=== PATIENT | female | born 1950 | race African-American/Black ===

== ENCOUNTER 2016-10-09 19:16 | Inpatient (IN) | payer MEDICARE, MEDICAID ==
[~2016-10-09] VITALS: Ht 162.6 cm; Wt 59.0 kg
[~2016-10-09 19:16] MED LIST: ACET-2178 PO; DIPH25CA83 PO; DOCU-138 PO; KEPP500 PO
[2016-10-10] MEDS ORDERED: MORPHINE SULFATE 2 MG/ML CPJ (NOT FOR IM USE) IV ONE (00:45)
[2016-10-10] MEDS ORDERED: SODIUM CHLORIDE 0.9% 500 ML IV ONE (00:45)
[2016-10-10 00:56] LABS: BASOPHILS % 0.9 % (0.0-2.0); EOSINOPHILS % 5.3 % (0.0-5.0); HEMATOCRIT. 28.7 % (36.0-48.0); HEMOGLOBIN. 9.2 g/dL (12.0-16.0); LYMPHOCYTES % 18.6 % (20.0-50.0); MEAN CORPUSCULAR HEMOGLOBIN 26.1 pg (28.0-32.0); MEAN CORPUSCULAR HGB CONC 32.1 g/dL (31.0-37.0); MEAN CORPUSCULAR VOLUME 81.3 fL (81.0-99.0); MEAN PLATELET VOLUME 7.3 fl (7.4-10.4); MONOCYTES % 7.7 % (2.0-8.0); NEUTROPHILS % 67.5 % (40.0-76.0); PLATELET 440 x1000/uL (130-400); RED BLOOD CELL COUNT 3.53 mill/uL (4.2-5.4); RED CELL DISTRIBUTION WIDTH 22.5 % (11.6-14.6); WHITE BLOOD COUNT 9.4 x1000/uL (4.5-11.0)
[2016-10-10 00:59] LABS: DIFFERENTIAL COMMENT 1
[2016-10-10 01:05] LABS: CHLORIDE 105 mEq/L (98-107); INDEX HEMOLYSI 1 (1-3); INDEX ICTERIC 1 (1-4); INDEX LIPEMIC 1 (1-3)
[2016-10-10 01:13] LABS: ALANINE AMINOTRANSFERASE 10 IU/L (13-61); ANION GAP 12; CALCIUM 8.9 mg/dL (8.5-10.1); CARBON DIOXIDE 26 mEq/L (21-32); UREA NITROGEN BLOOD 12 mg/dL (7-21); eGFR > 60 mL/min (>60)
[2016-10-10 01:28] LABS: CLARITY URINE CLEAR (CLEAR); COLOR URINE YELLOW (YELLOW); GLUCOSE URINE NEGATIVE (NEGATIVE); KETONES URINE NEGATIVE (NEGATIVE); LEUKOCYTE ESTERASE URINE 1+ (NEGATIVE); NITRITE URINE NEGATIVE (NEGATIVE); OCCULT BLOOD URINE NEGATIVE (NEGATIVE); PH URINE 7.5 (4.5-8.0); PROTEIN URINE NEGATIVE (NEGATIVE); SPECIFIC GRAVITY URINE 1.016 (1.005-1.030); UROBILINOGEN URINE 0.2 E.U./dL (0.2-1.0)
[2016-10-10 01:35] LABS: *AMPHETAMINES SCREEN URINE NEGATIVE (NEGATIVE); *BARBITURATES SCREEN URINE NEGATIVE (NEGATIVE); *BENZODIAZEPINES SCREEN URINE NEGATIVE (NEGATIVE); *COCAINE SCREEN URINE NEGATIVE (NEGATIVE); CANNABINOID URINE SCREEN NEGATIVE (NEGATIVE); ECSTASY MDMA SCREEN URINE NEGATIVE (NEGATIVE); METHADONE URINE SCREEN NEGATIVE (NEGATIVE); OPIATES URINE SCREEN PRESUMTIVE POSITIVE (NEGATIVE); PHENCYCLIDINE URINE SCREEN NEGATIVE (NEGATIVE)
[2016-10-10 01:40] LABS: SQUAMOUS EPITHELIAL CELL URINE FEW /lpf (RARE/1+); WBC URINE 0-2 /hpf (0-2)
[2016-10-10 01:41] LABS: RBC URINE NONE SEEN /hpf (0-2)
[2016-10-10 01:42] LABS: BACTERIA URINE NONE SEEN
[2016-10-10] MEDS ORDERED: CLONIDINE 0.1MG TABLET PO PRN (03:45)
[2016-10-10] MEDS: MORPHINE SULFATE 2 MG/ML CPJ (NOT FOR IM USE) IV PRN ×5 (03:51→21:14)
[2016-10-10 08:00] VITALS: BP 122/80
[2016-10-10] MEDS ORDERED: POTASSIUM CHLORIDE 20MEQ TABLET SR PO NR (08:15)
[2016-10-10 08:29] VITALS: BP 122/80
[2016-10-10] MEDS: NIFEDIPINE XL 60MG TAB PO SCH (08:39)
[2016-10-10] MEDS: SODIUM CHLORIDE 0.9% 1,000 ML IV SCH (09:17)
[2016-10-10 12:00] VITALS: BP 131/91
[2016-10-10] MEDS: ENOXAPARIN 40MG/0.4ML SYR SUBCUT SCH (14:16)
[2016-10-10 14:49] LABS: CREATINE KINASE 28 IU/L (26-192); CREATINE KINASE MB FRACTION 1.3 ng/mL (0.5-3.6); INDEX HEMOLYSI 1 (1-3); MAGNESIUM 1.8 mg/dL (1.8-2.4); TROPONIN I < 0.02 ng/mL (0.00-0.04)
[2016-10-10 16:00] VITALS: BP 114/75
[2016-10-10 20:29] VITALS: BP 119/76
[2016-10-11] VITALS: BP 136/91
[2016-10-11] MEDS: MORPHINE SULFATE 2 MG/ML CPJ (NOT FOR IM USE) IV PRN ×5 (02:01→20:31)
[2016-10-11] MEDS: SODIUM CHLORIDE 0.9% 1,000 ML IV SCH ×2 (02:01→17:20)
[2016-10-11 04:00] VITALS: BP 128/82
[2016-10-11 06:45] LABS: BASOPHILS % 1.2 % (0.0-2.0); EOSINOPHILS % 5.5 % (0.0-5.0); HEMATOCRIT. 29.2 % (36.0-48.0); HEMOGLOBIN. 9.3 g/dL (12.0-16.0); LYMPHOCYTES % 28.1 % (20.0-50.0); MEAN CORPUSCULAR HEMOGLOBIN 25.5 pg (28.0-32.0); MEAN CORPUSCULAR VOLUME 79.8 fL (81.0-99.0); MEAN PLATELET VOLUME 7.7 fl (7.4-10.4); MONOCYTES % 5.5 % (2.0-8.0); NEUTROPHILS % 59.7 % (40.0-76.0); PLATELET 445 x1000/uL (130-400); RED BLOOD CELL COUNT 3.66 mill/uL (4.2-5.4); RED CELL DISTRIBUTION WIDTH 22.5 % (11.6-14.6); WHITE BLOOD COUNT 5.5 x1000/uL (4.5-11.0)
[2016-10-11 07:17] LABS: CHLORIDE 103 mEq/L (98-107); INDEX HEMOLYSI 1 (1-3); INDEX ICTERIC 1 (1-4); INDEX LIPEMIC 1 (1-3)
[2016-10-11 07:23] LABS: DIFFERENTIAL COMMENT 1
[2016-10-11 07:24] LABS: ADD RBC MORPHOLOGY YES
[2016-10-11 07:30] LABS: ALANINE AMINOTRANSFERASE 11 IU/L (13-61); ANION GAP 14; CALCIUM 8.9 mg/dL (8.5-10.1); CARBON DIOXIDE 24 mEq/L (21-32); UREA NITROGEN BLOOD 7 mg/dL (7-21); eGFR > 60 mL/min (>60)
[2016-10-11 08:00] VITALS: BP 100/67
[2016-10-11 08:13] LABS: ANISOCYTOSIS 3+; PLATELET ESTIMATE INCREASED
[2016-10-11] MEDS: ENOXAPARIN 40MG/0.4ML SYR SUBCUT SCH (08:31)
[2016-10-11] MEDS: NIFEDIPINE XL 60MG TAB PO SCH (08:32)
[2016-10-11] MEDS ORDERED: POTASSIUM CHLORIDE 40MEQ/30ML UDC PO ONE (09:45)
[2016-10-11] MEDS ORDERED: POTASSIUM CHLORIDE 20MEQ TABLET SR PO NR (10:00)
[2016-10-11] MEDS: CEFTRIAXONE 1 G PREMIX 50 ML IV SCH (11:01)
[2016-10-11 12:00] VITALS: BP 128/80
[2016-10-11 13:10] LABS: INDEX HEMOLYSI 1 (1-3); INDEX ICTERIC 1 (1-4); INDEX LIPEMIC 1 (1-3); IRON 23 ug/dL (50-175); TOTAL IRON BINDING CAPACITY 300 ug/dL (250-450)
[2016-10-11 16:00] VITALS: BP 129/79
[2016-10-12] MEDS: LEVETIRACETAM 500MG TABLET PO SCH ×2 (02:02→08:33)
[2016-10-12] MEDS: MORPHINE SULFATE 2 MG/ML CPJ (NOT FOR IM USE) IV PRN ×3 (02:04→13:15)
[2016-10-12 08:00] VITALS: BP 112/80
[2016-10-12] MEDS: ENOXAPARIN 40MG/0.4ML SYR SUBCUT SCH (08:34)
[2016-10-12] MEDS: NIFEDIPINE XL 60MG TAB PO SCH (08:34)
[2016-10-12] MEDS: CEFTRIAXONE 1 G PREMIX 50 ML IV SCH (10:12)
[2016-10-12] MEDS: SODIUM CHLORIDE 0.9% 1,000 ML IV SCH (11:01)
[2016-10-12 12:00] VITALS: BP 111/77
[2016-10-12 15:54] VITALS: BP 121/86
[2016-10-12 16:00] VITALS: BP 121/86
== END 2016-10-12 16:20 | disposition home or self-care (01) | DRG 690 ==
LOC: ER 19:42 → 6EST 10-10 02:14
PROVIDERS: ADMIT Internal Medicine; ATTEND Internal Medicine
DX: N39.0 Urinary tract infection, site not specified (principal); I31.3 Pericardial effusion (noninflammatory); K57.30 Diverticulosis of large intestine without perforation or abscess without bleeding; E87.6 Hypokalemia; N20.0 Calculus of kidney; F20.9 Schizophrenia, unspecified; F31.9 Bipolar disorder, unspecified
CPT/HCPCS: 36415; 71010; 74176; 78227; 80053; 80305; 81001; 82550; 82553; 83036; 83540; 83550; 83605; 83735; 84484; 85025; 87040; 87086; 93005; 93970; 96361; 96374; 96376; 99285; A9537; J0696; J1650; J2270; J7030; J7040

== ENCOUNTER 2018-06-07 10:56 | Inpatient (IN) | payer MEDICARE, MEDICAID ==
[~2018-06-07] VITALS: Ht 157.5 cm; Wt 55.8 kg
[~2018-06-07 10:56] MED LIST changes: +DIVA-18 PO; -KEPP500 PO
[2018-06-07 12:07] LABS: MEAN CORPUSCULAR HEMOGLOBIN 15.2 pg (28.0-32.0); MEAN CORPUSCULAR VOLUME 54.6 fL (81.0-99.0); MEAN PLATELET VOLUME 8.5 fl (7.4-10.4); PLATELET 412 x1000/uL (130-400); RED BLOOD CELL COUNT 2.58 mill/uL (4.2-5.4)
[2018-06-07 12:13] LABS: CHLORIDE 111 mEq/L (98-107)
[2018-06-07 12:25] LABS: HEMOGLOBIN. 3.9 g/dL (12.0-16.0)
[2018-06-07 12:26] LABS: HEMATOCRIT. 14.1 % (36.0-48.0)
[2018-06-07 12:49] LABS: NUCLEATED RED BLOOD CELLS 4 /100 WBC
[2018-06-07 12:51] LABS: INR 1.1; PROTHROMBIN TIME 10.7 sec (9.1-11.1)
[2018-06-07 12:51] LABS: PLATELET ESTIMATE SLIGHTLY INCREASED
[2018-06-07] MEDS ORDERED: ONDANSETRON HCL 4MG/2ML INJ IV PRN (15:00)
[2018-06-07] MEDS ORDERED: CLONIDINE 0.1MG TABLET PO PRN (15:00)
[2018-06-07] MEDS ORDERED: PANTOPRAZOLE SODIUM 40 MG/VIAL IV SCH (15:00)
[2018-06-07] MEDS: MORPHINE SULFATE 4 MG/ML CPJ (NOT FOR IM USE) IV PRN ×2 (16:04→20:21)
[2018-06-07 16:47] LABS: TOTAL IRON BINDING CAPACITY 418 ug/dL (250-450)
[2018-06-07 17:31] LABS: FERRITIN < 5 ng/mL (10-291)
[2018-06-07 17:47] LABS: VITAMIN B12 SERUM 449 pg/mL (211-911)
[2018-06-07 20:45] VITALS: BP 159/90
[2018-06-07] MEDS: PANTOPRAZOLE SODIUM 40 MG/VIAL IV SCH (21:51)
[2018-06-07 22:14] VITALS: BP 159/90
[2018-06-07 22:17] LABS: HEMATOCRIT 20.1 % (36.0-48.0); HEMOGLOBIN 6.3 g/dL (12.0-16.0)
[2018-06-07] MEDS ORDERED: INFLUENZA VIRUS VACCINE(AFLURIA) 0.5ML SYR IM ONE (23:45)
[2018-06-08] VITALS (10 sets, daily range): BP systolic 104–160; BP diastolic 62–80
[2018-06-08] MEDS ORDERED: PNEUMOCOCCAL 23-VAL P-SAC VAC 0.5 ML IM ONE (01:00)
[2018-06-08 01:35] LABS: CLARITY URINE CLOUDY (CLEAR); COLOR URINE YELLOW (YELLOW); KETONES URINE NEGATIVE (NEGATIVE); LEUKOCYTE ESTERASE URINE 1+ (NEGATIVE); NITRITE URINE NEGATIVE (NEGATIVE); OCCULT BLOOD URINE NEGATIVE (NEGATIVE); PH URINE 6.5 (4.5-8.0); PROTEIN URINE NEGATIVE (NEGATIVE); SPECIFIC GRAVITY URINE 1.011 (1.005-1.030); UROBILINOGEN URINE 0.2 E.U./dL (0.2-1.0)
[2018-06-08] MEDS: MORPHINE SULFATE 4 MG/ML CPJ (NOT FOR IM USE) IV PRN ×3 (01:45→10:28)
[2018-06-08 01:49] LABS: *AMPHETAMINES SCREEN URINE NEGATIVE (NEGATIVE); *BARBITURATES SCREEN URINE NEGATIVE (NEGATIVE); *BENZODIAZEPINES SCREEN URINE NEGATIVE (NEGATIVE); *COCAINE SCREEN URINE NEGATIVE (NEGATIVE)
[2018-06-08 01:50] LABS: CANNABINOID URINE SCREEN NEGATIVE (NEGATIVE); METHADONE URINE SCREEN NEGATIVE (NEGATIVE); OPIATES URINE SCREEN PRESUMTIVE POSITIVE (NEGATIVE); PHENCYCLIDINE URINE SCREEN NEGATIVE (NEGATIVE)
[2018-06-08 07:39] LABS: MEAN CORPUSCULAR HEMOGLOBIN 20.4 pg (28.0-32.0); MEAN CORPUSCULAR VOLUME 64.8 fL (81.0-99.0); MEAN PLATELET VOLUME 8.3 fl (7.4-10.4); PLATELET 322 x1000/uL (130-400); RED BLOOD CELL COUNT 2.91 mill/uL (4.2-5.4); RED CELL DISTRIBUTION WIDTH 35.1 % (11.6-14.6)
[2018-06-08 07:40] LABS: INR 1.1; PARTIAL THROMBOPLASTIN TIME 27.6 sec (23.4-31.0); PROTHROMBIN TIME 10.7 sec (9.1-11.1)
[2018-06-08 07:51] LABS: CHLORIDE 109 mEq/L (98-107)
[2018-06-08 08:29] LABS: HEMOGLOBIN. 5.9 g/dL (12.0-16.0)
[2018-06-08 08:30] LABS: HEMATOCRIT. 18.8 % (36.0-48.0)
[2018-06-08] MEDS: HYDROCODONE/ACETAMINOPHEN 5/325MG TABLET PO PRN (09:08)
[2018-06-08] MEDS: PANTOPRAZOLE SODIUM 40 MG/VIAL IV SCH ×2 (10:28→20:27)
[2018-06-08] MEDS ORDERED: BACTERIOSTATIC SODIUM CHLORIDE 0.9% 30ML VIAL IJ ONE (11:42)
[2018-06-08] MEDS ORDERED: SIMETHICONE 40 MG/0.6 ML 30ML ONE ×2 (11:42→16:12)
[2018-06-08 13:18] LABS: PLATELET ESTIMATE NORMAL
[2018-06-08] MEDS ORDERED: FENTANYL CITRATE/PF 50MCG/ML 2ML VIAL ONE (16:12)
[2018-06-08] MEDS ORDERED: MIDAZOLAM HCL 5 MG/5 ML VIAL ONE (16:12)
[2018-06-08] MEDS ORDERED: MIDAZOLAM HCL 5 MG/5 ML VIAL IV PRN (16:25)
[2018-06-08] MEDS ORDERED: FENTANYL CITRATE/PF 50MCG/ML 2ML VIAL IV PRN (16:26)
[2018-06-08 19:39] LABS: HEMATOCRIT 22.2 % (36.0-48.0); HEMOGLOBIN 7.2 g/dL (12.0-16.0)
[2018-06-09] VITALS: BP 101/58
[2018-06-09 04:00] VITALS: BP 116/66
[2018-06-09 07:03] LABS: HEMATOCRIT. 22.3 % (36.0-48.0); HEMOGLOBIN. 7.3 g/dL (12.0-16.0); MEAN CORPUSCULAR HEMOGLOBIN 21.9 pg (28.0-32.0); MEAN CORPUSCULAR VOLUME 66.8 fL (81.0-99.0); MEAN PLATELET VOLUME 8.7 fl (7.4-10.4); PLATELET 351 x1000/uL (130-400); RED BLOOD CELL COUNT 3.34 mill/uL (4.2-5.4); RED CELL DISTRIBUTION WIDTH 35.6 % (11.6-14.6)
[2018-06-09 07:21] LABS: CHLORIDE 107 mEq/L (98-107)
[2018-06-09 08:00] VITALS: BP 127/71
[2018-06-09] MEDS: PANTOPRAZOLE 40MG DR TABLET PO SCH (10:21)
[2018-06-09] MEDS: SUCRALFATE 1 G/10 ML UDC PO SCH ×3 (10:53→21:08)
[2018-06-09] MEDS: HYDROCODONE/ACETAMINOPHEN 5/325MG TABLET PO PRN (10:59)
[2018-06-09] MEDS: CEFTRIAXONE 1 G PREMIX 50 ML IV SCH (11:58)
[2018-06-09 12:00] VITALS: BP 136/79
[2018-06-09] MEDS ORDERED: POTASSIUM CHLORIDE 20MEQ TABLET SR PO SCH (12:30)
[2018-06-09 13:09] VITALS: BP 136/79
[2018-06-09 16:20] VITALS: BP 111/68
[2018-06-10] VITALS: BP 130/75
[2018-06-10 04:00] VITALS: BP 122/73
[2018-06-10] MEDS: SUCRALFATE 1 G/10 ML UDC PO SCH ×2 (06:06→11:38)
[2018-06-10] MEDS: HYDROCODONE/ACETAMINOPHEN 5/325MG TABLET PO PRN (06:07)
[2018-06-10 07:15] LABS: HEMATOCRIT. 25.5 % (36.0-48.0); HEMOGLOBIN. 8.1 g/dL (12.0-16.0); MEAN CORPUSCULAR HEMOGLOBIN 21.8 pg (28.0-32.0); MEAN CORPUSCULAR VOLUME 69.1 fL (81.0-99.0); MEAN PLATELET VOLUME 8.6 fl (7.4-10.4); PLATELET 365 x1000/uL (130-400); RED BLOOD CELL COUNT 3.69 mill/uL (4.2-5.4); RED CELL DISTRIBUTION WIDTH 35.7 % (11.6-14.6)
[2018-06-10 08:00] VITALS: BP 131/73
[2018-06-10 08:08] LABS: NUCLEATED RED BLOOD CELLS 1 /100 WBC; PLATELET ESTIMATE NORMAL
[2018-06-10] MEDS: PANTOPRAZOLE 40MG DR TABLET PO SCH (08:57)
[2018-06-10] MEDS ORDERED: IRON SUCROSE COMPLEX 100 MG/5 ML ML IV SCH (09:30)
[2018-06-10 09:42] LABS: PLATELET ESTIMATE NORMAL
[2018-06-10] MEDS: CEFTRIAXONE 1 G PREMIX 50 ML IV SCH (11:38)
[2018-06-10 12:00] VITALS: BP_SYST 130; BP_SYST 147; BP_DIAS 67; BP_DIAS 84
[2018-06-10 12:12] VITALS: BP 130/68
== END 2018-06-10 13:15 | disposition home or self-care (01) | DRG 378 ==
LOC: ER 10:56 → 5WST 14:14 → EDBEDREQ 14:15 → ENRESERV 19:23
PROVIDERS: ADMIT Internal Medicine; ATTEND Internal Medicine
PROC: 30233N1 Transfusion of Nonautologous Red Blood Cells into Peripheral Vein, Percutaneous Approach (ICD-10-PCS; 2018-06-07)
PROC: 0DB78ZX Excision of Stomach, Pylorus, Via Natural or Artificial Opening Endoscopic, Diagnostic (ICD-10-PCS; principal; 2018-06-08 17:30)
DX: K26.4 Chronic or unspecified duodenal ulcer with hemorrhage (principal); E87.0 Hyperosmolality and hypernatremia; K22.10 Ulcer of esophagus without bleeding; D50.9 Iron deficiency anemia, unspecified; J45.909 Unspecified asthma, uncomplicated; F31.9 Bipolar disorder, unspecified; I10 Essential (primary) hypertension; K29.50 Unspecified chronic gastritis without bleeding; K44.9 Diaphragmatic hernia without obstruction or gangrene; E87.8 Other disorders of electrolyte and fluid balance, not elsewhere classified; K57.30 Diverticulosis of large intestine without perforation or abscess without bleeding; Z87.11 Personal history of peptic ulcer disease; Z79.899 Other long term (current) drug therapy
CPT/HCPCS: 36415; 80048; 80305; 82607; 82728; 82746; 83540; 83550; 85014; 85018; 86850; 86900; 86920; 87077; 87186; 88305; 88312; 88313; 93005; 99291; C9113; J0696; J2250; J2270; J3010; J3490; J7050; P9016

== ENCOUNTER 2019-01-14 02:25 | Emergency (ER) | payer MEDICARE, MEDICAID ==
[~2019-01-14] VITALS: Ht 160 cm; Wt 69.0 kg
[2019-01-14] MEDS ORDERED: PREDNISONE 20MG TABLET PO STA (04:02)
[2019-01-14] MEDS ORDERED: IPRATROPIUM BROMIDE (0.02%) 0.5MG/2.5ML NEB HHN STA ×2 (04:02→04:59)
[2019-01-14] MEDS ORDERED: ALBUTEROL (0.083%) 2.5MG/3ML NEB HHN STA ×2 (04:02→04:59)
[2019-01-14 04:28] LABS: HEMATOCRIT. 28.6 % (36.0-48.0); HEMOGLOBIN. 9.1 g/dL (12.0-16.0); MEAN CORPUSCULAR HEMOGLOBIN 25.6 pg (28.0-32.0); MEAN CORPUSCULAR VOLUME 80.1 fL (81.0-99.0); MEAN PLATELET VOLUME 7.7 fl (7.4-10.4); PLATELET 405 x1000/uL (130-400); RED BLOOD CELL COUNT 3.57 mill/uL (4.2-5.4); RED CELL DISTRIBUTION WIDTH 20.1 % (11.6-14.6)
[2019-01-14 04:33] LABS: CHLORIDE 109 mEq/L (98-107)
[2019-01-14 05:07] LABS: PLATELET ESTIMATE NORMAL
[2019-01-14] MEDS ORDERED: PERMETHRIN 5% CREAM 60GM TOP ONE (22:15)
[2019-01-15 07:13] VITALS: BP 132/79
== END 2019-01-15 14:23 | disposition home or self-care (01) ==
LOC: ER 02:25
DX: J45.901 Unspecified asthma with (acute) exacerbation (principal); Z90.49 Acquired absence of other specified parts of digestive tract; Z79.899 Other long term (current) drug therapy
CPT/HCPCS: 36415; 71045; 80053; 83880; 84484; 85025; 93005; 94640; 99284; J7512; J7611

== ENCOUNTER 2019-04-12 03:20 | Inpatient (IN) | payer OTHER, MEDICAID ==
[~2019-04-12] VITALS: Ht 160 cm; Wt 56.7 kg
[2019-04-12] MEDS ORDERED: METHYLPREDNISOLONE SOD SUCC 125 MG/2 ML VIAL IV STA (03:56)
[2019-04-12] MEDS ORDERED: ONDANSETRON HCL 4MG/2ML INJ IV STA (03:56)
[2019-04-12] MEDS ORDERED: IPRATROPIUM BROMIDE (0.02%) 0.5MG/2.5ML NEB HHN STA (03:56)
[2019-04-12] MEDS ORDERED: ALBUTEROL (0.083%) 2.5MG/3ML NEB HHN STA (03:56)
[2019-04-12 04:19] LABS: HEMOGLOBIN. 10.3 g/dL (12.0-16.0); MEAN CORPUSCULAR HEMOGLOBIN 23.6 pg (28.0-32.0); MEAN CORPUSCULAR VOLUME 76.1 fL (81.0-99.0); MEAN PLATELET VOLUME 7.6 fl (7.4-10.4); PLATELET 405 x1000/uL (130-400); RED BLOOD CELL COUNT 4.34 mill/uL (4.2-5.4)
[2019-04-12 04:27] LABS: CHLORIDE 101 mEq/L (98-107)
[2019-04-12 04:40] LABS: NUCLEATED RED BLOOD CELLS 1 /100 WBC; PLATELET ESTIMATE SLIGHTLY INCREASED
[2019-04-12 08:20] VITALS: BP 105/69
[2019-04-12 09:12] VITALS: BP 105/69
[2019-04-12] MEDS ORDERED: DIPHENHYDRAMINE 50MG/ML VIAL IV PRN (10:15)
[2019-04-12] MEDS ORDERED: GUAIFENESIN 200MG/10ML SUGAR FREE UDC PO PRN (10:15)
[2019-04-12] MEDS ORDERED: ONDANSETRON HCL 4MG/2ML INJ IV PRN (10:15)
[2019-04-12] MEDS ORDERED: MAGNESIUM/ALUMINUM HYDROXIDE/SIMETHICONE 30ML UDC PO PRN (10:15)
[2019-04-12] MEDS ORDERED: IPRATROPIUM/ALBUTEROL 0.5-3(2.5)MG/3ML NEB HHN PRN (10:15)
[2019-04-12] MEDS ORDERED: LORAZEPAM 0.5MG TABLET PO PRN (10:15)
[2019-04-12] MEDS ORDERED: MAGNESIUM HYDROXIDE 400MG/5ML 30ML UDC PO PRN (10:15)
[2019-04-12 12:00] VITALS: BP 103/60
[2019-04-12] MEDS: IPRATROPIUM/ALBUTEROL 0.5-3(2.5)MG/3ML NEB HHN SCH ×3 (12:20→20:57)
[2019-04-12] MEDS: METHYLPREDNISOLONE SOD SUCC 125 MG/2 ML VIAL IV SCH ×2 (12:52→23:14)
[2019-04-12] MEDS: PANTOPRAZOLE 40MG DR TABLET PO SCH ×2 (12:58→23:14)
[2019-04-12] MEDS: SODIUM CHLORIDE 0.9% INJ 3ML FLUSH IVF SCH ×2 (12:58→22:00)
[2019-04-12] MEDS ORDERED: INFLUENZA VIRUS VACCINE(AFLURIA) 0.5ML SYR IM ONE (13:30)
[2019-04-12 16:00] VITALS: BP 110/65
[2019-04-12 20:00] VITALS: BP 99/59
[2019-04-12] MEDS ORDERED: ZOLPIDEM TARTRATE 5MG TABLET PO PRN (21:00)
[2019-04-13] VITALS: BP 97/51
[2019-04-13] MEDS: IPRATROPIUM/ALBUTEROL 0.5-3(2.5)MG/3ML NEB HHN SCH ×6 (01:08→20:00)
[2019-04-13] MEDS: ACETAMINOPHEN 325MG TABLET PO PRN ×4 (04:23→21:09)
[2019-04-13] MEDS: METHYLPREDNISOLONE SOD SUCC 125 MG/2 ML VIAL IV SCH ×3 (06:15→21:10)
[2019-04-13] MEDS: SODIUM CHLORIDE 0.9% INJ 3ML FLUSH IVF SCH ×3 (06:16→21:11)
[2019-04-13 08:00] VITALS: BP 107/59
[2019-04-13] MEDS: PANTOPRAZOLE 40MG DR TABLET PO SCH ×2 (08:59→21:10)
[2019-04-13 12:00] VITALS: BP 112/68
[2019-04-13] MEDS ORDERED: BENZONATATE 100MG CAPSULE PO PRN (15:30)
[2019-04-13 16:00] VITALS: BP 118/96
[2019-04-13] MEDS: LORATADINE 10MG TABLET PO SCH (16:11)
[2019-04-13] MEDS ORDERED: MONTELUKAST SODIUM 10MG TABLET PO SCH (17:00)
[2019-04-13 20:00] VITALS: BP 115/65
[2019-04-14] VITALS: BP 114/60
[2019-04-14] MEDS: IPRATROPIUM/ALBUTEROL 0.5-3(2.5)MG/3ML NEB HHN SCH ×4 (03:02→13:03)
[2019-04-14 04:00] VITALS: BP 125/78
[2019-04-14] MEDS: SODIUM CHLORIDE 0.9% INJ 3ML FLUSH IVF SCH (05:19)
[2019-04-14] MEDS: METHYLPREDNISOLONE SOD SUCC 125 MG/2 ML VIAL IV SCH (05:19)
[2019-04-14] MEDS: ACETAMINOPHEN 325MG TABLET PO PRN (05:19)
[2019-04-14 08:00] VITALS: BP 140/77
[2019-04-14] MEDS: PANTOPRAZOLE 40MG DR TABLET PO SCH (09:23)
[2019-04-14] MEDS: LORATADINE 10MG TABLET PO SCH (09:23)
[2019-04-14 12:00] VITALS: BP 110/69
[2019-04-14 13:14] VITALS: BP 136/69
== END 2019-04-14 13:59 | disposition home or self-care (01) | DRG 189 ==
LOC: ER 03:20 → 8WST 05:43 → EDBEDREQTM 05:59 → EDBEDREQ 05:59 → ENRESERV 07:08
PROVIDERS: ADMIT Internal Medicine; ATTEND Internal Medicine
DX: J96.00 Acute respiratory failure, unspecified whether with hypoxia or hypercapnia (principal); J45.901 Unspecified asthma with (acute) exacerbation; J44.1 Chronic obstructive pulmonary disease with (acute) exacerbation; R65.10 Systemic inflammatory response syndrome (SIRS) of non-infectious origin without acute organ dysfunction; D64.9 Anemia, unspecified; F31.9 Bipolar disorder, unspecified; I11.9 Hypertensive heart disease without heart failure; D72.1 Eosinophilia; Z72.0 Tobacco use; Z87.11 Personal history of peptic ulcer disease; Z79.899 Other long term (current) drug therapy
CPT/HCPCS: 36415; 71045; 83605; 83880; 84484; 90686; 93005; 93306; 93970; 94640; 99285; J1200; J2405; J2930; J7611; J7620

== ENCOUNTER 2019-05-15 16:41 | Inpatient (IN) | payer OTHER, MEDICAID ==
[~2019-05-15] VITALS: Ht 160 cm; Wt 60.3 kg
[~2019-05-15 16:41] MED LIST changes: -ACET-2178 PO; +TOPUD PO
[2019-05-15] MEDS ORDERED: ONDANSETRON HCL 4MG/2ML INJ IV STA ×2 (20:52→20:58)
[2019-05-15] MEDS ORDERED: KETOROLAC 30MG/ML VIAL IV STA (20:52)
[2019-05-15] MEDS ORDERED: SODIUM CHLORIDE 0.9% 1,000 ML IV ONE ×2 (20:52→20:58)
[2019-05-15] MEDS ORDERED: MORPHINE SULFATE 4 MG/ML CPJ (NOT FOR IM USE) IV STA (20:58)
[2019-05-15 23:58] LABS: CLARITY URINE CLOUDY (CLEAR); COLOR URINE YELLOW (YELLOW); KETONES URINE NEGATIVE (NEGATIVE); LEUKOCYTE ESTERASE URINE 1+ (NEGATIVE); NITRITE URINE NEGATIVE (NEGATIVE); OCCULT BLOOD URINE NEGATIVE (NEGATIVE); PH URINE 7.5 (4.5-8.0); PROTEIN URINE NEGATIVE (NEGATIVE); SPECIFIC GRAVITY URINE 1.011 (1.005-1.030); UROBILINOGEN URINE 0.2 E.U./dL (0.2-1.0)
[2019-05-16] VITALS (11 sets, daily range): BP systolic 100–144; BP diastolic 65–90
[2019-05-16 00:28] LABS: CHLORIDE 105 mEq/L (98-107)
[2019-05-16 00:31] LABS: PROTHROMBIN TIME 10.7 sec (9.6-11.0)
[2019-05-16 00:32] LABS: ETHANOL BLOOD < 10 mg/dL
[2019-05-16 00:37] LABS: HEMATOCRIT. 23.6 % (36.0-48.0); MEAN CORPUSCULAR HEMOGLOBIN 21.7 pg (28.0-32.0); MEAN CORPUSCULAR VOLUME 73.6 fL (81.0-99.0); PLATELET 361 x1000/uL (130-400); RED BLOOD CELL COUNT 3.21 mill/uL (4.2-5.4); RED CELL DISTRIBUTION WIDTH 27.8 % (11.6-14.6)
[2019-05-16 01:17] LABS: PLATELET ESTIMATE NORMAL
[2019-05-16] MEDS ORDERED: DEXT 5%/0.45% NACL 1000ML 1,000 ML IV SCH (03:08)
[2019-05-16] MEDS ORDERED: IPRATROPIUM/ALBUTEROL 0.5-3(2.5)MG/3ML NEB NEB PRN (03:15)
[2019-05-16] MEDS ORDERED: ACETAMINOPHEN 325MG TABLET PO PRN (03:15)
[2019-05-16] MEDS ORDERED: ONDANSETRON HCL 4MG/2ML INJ IV PRN (03:15)
[2019-05-16] MEDS ORDERED: DOCUSATE SODIUM 100MG CAPSULE PO PRN (03:15)
[2019-05-16] MEDS ORDERED: CLONIDINE 0.1MG TABLET PO PRN (03:15)
[2019-05-16] MEDS ORDERED: LORAZEPAM 2MG/ML CPJ IV PRN (03:15)
[2019-05-16] MEDS ORDERED: MAGNESIUM/ALUMINUM HYDROXIDE/SIMETHICONE 30ML UDC PO PRN (03:15)
[2019-05-16] MEDS: MORPHINE SULFATE 2 MG/ML CPJ (NOT FOR IM USE) IV PRN ×4 (03:54→23:36)
[2019-05-16] MEDS: LEVOFLOXACIN 500MG PREMIX 100 ML IV SCH (04:36)
[2019-05-16 09:59] LABS: *BARBITURATES SCREEN URINE NEGATIVE (NEGATIVE); *BENZODIAZEPINES SCREEN URINE NEGATIVE (NEGATIVE); CANNABINOID URINE SCREEN NEGATIVE (NEGATIVE); METHADONE URINE SCREEN NEGATIVE (NEGATIVE); OPIATES URINE SCREEN PRESUMTIVE POSITIVE (NEGATIVE); PHENCYCLIDINE URINE SCREEN NEGATIVE (NEGATIVE)
[2019-05-16 10:00] LABS: *AMPHETAMINES SCREEN URINE NEGATIVE (NEGATIVE); *COCAINE SCREEN URINE NEGATIVE (NEGATIVE)
[2019-05-16 12:42] LABS: TOTAL IRON BINDING CAPACITY 263 ug/dL (250-450)
[2019-05-16] MEDS ORDERED: KCL 20MEQ/100ML PREMIX 100 ML IV NR (18:00)
[2019-05-16 19:55] LABS: HEMATOCRIT 22.7 % (36.0-48.0); HEMOGLOBIN 7.1 g/dL (12.0-16.0)
[2019-05-17] VITALS (11 sets, daily range): BP systolic 110–130; BP diastolic 63–82
[2019-05-17] MEDS: LEVOFLOXACIN 500MG PREMIX 100 ML IV SCH ×2 (03:17→03:18)
[2019-05-17 09:31] LABS: HEMATOCRIT. 25.5 % (36.0-48.0); HEMOGLOBIN. 8.1 g/dL (12.0-16.0); MEAN CORPUSCULAR HEMOGLOBIN 24.2 pg (28.0-32.0); MEAN CORPUSCULAR VOLUME 75.9 fL (81.0-99.0); MEAN PLATELET VOLUME 7.1 fl (7.4-10.4); PLATELET 271 x1000/uL (130-400); RED BLOOD CELL COUNT 3.36 mill/uL (4.2-5.4); RED CELL DISTRIBUTION WIDTH 25.3 % (11.6-14.6)
[2019-05-17 09:44] LABS: CHLORIDE 106 mEq/L (98-107)
[2019-05-17] MEDS: MORPHINE SULFATE 2 MG/ML CPJ (NOT FOR IM USE) IV PRN (11:13)
[2019-05-17] MEDS ORDERED: NITR-87 MT (11:32)
[2019-05-17 12:04] LABS: PLATELET ESTIMATE NORMAL
== END 2019-05-17 12:33 | disposition home or self-care (01) | DRG 445 ==
LOC: ER 16:41 → 6EST 05-16 01:14 → ENRESERV 05-16 01:18 → EDBEDREQTM 05-16 01:41 → EDBEDREQ 05-16 01:41
PROVIDERS: ADMIT Hospitalist; ATTEND Hospitalist
PROC: 30233N1 Transfusion of Nonautologous Red Blood Cells into Peripheral Vein, Percutaneous Approach (ICD-10-PCS; principal; 2019-05-16)
DX: K80.20 Calculus of gallbladder without cholecystitis without obstruction (principal); N39.0 Urinary tract infection, site not specified; D50.9 Iron deficiency anemia, unspecified; F31.9 Bipolar disorder, unspecified; I10 Essential (primary) hypertension; J45.909 Unspecified asthma, uncomplicated; K57.30 Diverticulosis of large intestine without perforation or abscess without bleeding; K59.00 Constipation, unspecified; N20.0 Calculus of kidney; Z87.11 Personal history of peptic ulcer disease; Z79.899 Other long term (current) drug therapy
CPT/HCPCS: 36415; 71045; 74018; 74176; 74181; 76700; 80305; 80320; 81003; 82962; 83540; 83550; 83605; 84484; 85014; 85018; 85384; 86850; 86900; 86920; 87077; 87186; 93005; 93970; 96361; 96374; 96375; 99285; J1885; J1956; J2270; J2405; J3480; J7030; P9016; G0480

== ENCOUNTER 2019-06-04 19:27 | Inpatient (IN) | payer MEDICARE, MEDICAID ==
[~2019-06-04] VITALS: Ht 160 cm; Wt 60.8 kg
[~2019-06-04 19:27] MED LIST changes: +NITR-87 MT
[2019-06-04] MEDS ORDERED: ACETAMINOPHEN WITH CODEINE 300/30MG TABLET PO STA (21:28)
[2019-06-04 22:41] LABS: MEAN CORPUSCULAR HEMOGLOBIN 22.2 pg (28.0-32.0); MEAN CORPUSCULAR VOLUME 73.9 fL (81.0-99.0); MEAN PLATELET VOLUME 6.4 fl (7.4-10.4); PLATELET 954 x1000/uL (130-400); RED CELL DISTRIBUTION WIDTH 27.2 % (11.6-14.6)
[2019-06-04 22:48] LABS: CLARITY URINE CLOUDY (CLEAR); COLOR URINE YELLOW (YELLOW); KETONES URINE NEGATIVE (NEGATIVE); LEUKOCYTE ESTERASE URINE 2+ (NEGATIVE); NITRITE URINE POSITIVE (NEGATIVE); OCCULT BLOOD URINE NEGATIVE (NEGATIVE); PROTEIN URINE 1+ (NEGATIVE); SPECIFIC GRAVITY URINE 1.029 (1.005-1.030)
[2019-06-04 22:48] LABS: HEMATOCRIT. 19.2 % (36.0-48.0); HEMOGLOBIN. 5.8 g/dL (12.0-16.0)
[2019-06-04 22:49] LABS: CHLORIDE 110 mEq/L (98-107)
[2019-06-04] MEDS ORDERED: CEFTRIAXONE 1 G PREMIX 50 ML IV ONE (23:00)
[2019-06-04 23:05] LABS: PLATELET ESTIMATE MARKEDLY INCREASED
[2019-06-05] VITALS (10 sets, daily range): BP systolic 118–160; BP diastolic 71–99
[2019-06-05] MEDS ORDERED: ONDANSETRON HCL 4MG/2ML INJ IV STA (00:24)
[2019-06-05] MEDS ORDERED: MORPHINE SULFATE 4 MG/ML CPJ (NOT FOR IM USE) IV STA (00:24)
[2019-06-05] MEDS ORDERED: MORPHINE SULFATE 4 MG/ML CPJ (NOT FOR IM USE) IV ONE (04:15)
[2019-06-05] MEDS ORDERED: CLONIDINE 0.1MG TABLET PO PRN (09:30)
[2019-06-05] MEDS ORDERED: LORAZEPAM 0.5MG TABLET PO PRN (09:30)
[2019-06-05] MEDS ORDERED: ACETAMINOPHEN 325MG TABLET PO PRN (09:30)
[2019-06-05] MEDS ORDERED: DOCUSATE SODIUM 100MG CAPSULE PO PRN (09:30)
[2019-06-05] MEDS ORDERED: ONDANSETRON HCL 4MG/2ML INJ IV PRN (09:30)
[2019-06-05] MEDS ORDERED: IPRATROPIUM/ALBUTEROL 0.5-3(2.5)MG/3ML NEB HHN PRN (09:30)
[2019-06-05] MEDS: HYDROCODONE/ACETAMINOPHEN 5/325MG TABLET PO PRN ×2 (09:33→16:58)
[2019-06-05 11:19] LABS: MEAN CORPUSCULAR HEMOGLOBIN 23.7 pg (28.0-32.0); MEAN CORPUSCULAR VOLUME 75.4 fL (81.0-99.0); PLATELET 767 x1000/uL (130-400); RED BLOOD CELL COUNT 2.48 mill/uL (4.2-5.4); RED CELL DISTRIBUTION WIDTH 24.7 % (11.6-14.6)
[2019-06-05 11:37] LABS: HEMOGLOBIN 5.9 g/dL (12.0-16.0)
[2019-06-05 11:38] LABS: HEMATOCRIT 18.7 % (36.0-48.0)
[2019-06-05 15:10] LABS: *COCAINE SCREEN URINE NEGATIVE (NEGATIVE); CANNABINOID URINE SCREEN NEGATIVE (NEGATIVE); METHADONE URINE SCREEN NEGATIVE (NEGATIVE); OPIATES URINE SCREEN PRESUMTIVE POSITIVE (NEGATIVE); PHENCYCLIDINE URINE SCREEN NEGATIVE (NEGATIVE)
[2019-06-05 15:11] LABS: *AMPHETAMINES SCREEN URINE NEGATIVE (NEGATIVE); *BARBITURATES SCREEN URINE NEGATIVE (NEGATIVE); *BENZODIAZEPINES SCREEN URINE NEGATIVE (NEGATIVE)
[2019-06-05] MEDS: MORPHINE SULFATE 2 MG/ML CPJ (NOT FOR IM USE) IV PRN ×2 (15:45→20:39)
[2019-06-05 19:23] LABS: HEMATOCRIT 24.5 % (36.0-48.0); HEMOGLOBIN 7.8 g/dL (12.0-16.0); MEAN CORPUSCULAR HEMOGLOBIN 24.9 pg (28.0-32.0); MEAN CORPUSCULAR VOLUME 78.2 fL (81.0-99.0); PLATELET 775 x1000/uL (130-400); RED BLOOD CELL COUNT 3.14 mill/uL (4.2-5.4); RED CELL DISTRIBUTION WIDTH 23.6 % (11.6-14.6)
[2019-06-05] MEDS: DIVALPROEX SODIUM 500MG ER TABLET PO SCH (20:39)
[2019-06-06] VITALS (11 sets, daily range): BP systolic 98–130; BP diastolic 61–83
[2019-06-06] MEDS: CEFTRIAXONE 1 G PREMIX 50 ML IV SCH (00:28)
[2019-06-06] MEDS: MORPHINE SULFATE 2 MG/ML CPJ (NOT FOR IM USE) IV PRN (00:50)
[2019-06-06 07:25] LABS: CHLORIDE 108 mEq/L (98-107)
[2019-06-06 08:16] LABS: HEMATOCRIT. 21.1 % (36.0-48.0); MEAN CORPUSCULAR HEMOGLOBIN 24.9 pg (28.0-32.0); MEAN CORPUSCULAR VOLUME 77.3 fL (81.0-99.0); MEAN PLATELET VOLUME 7.3 fl (7.4-10.4); PLATELET 644 x1000/uL (130-400); RED BLOOD CELL COUNT 2.73 mill/uL (4.2-5.4); RED CELL DISTRIBUTION WIDTH 24.1 % (11.6-14.6)
[2019-06-06 08:36] LABS: HEMOGLOBIN. 6.8 g/dL (12.0-16.0)
[2019-06-06 11:13] LABS: INR 1.1
[2019-06-06 12:02] LABS: NUCLEATED RED BLOOD CELLS 2 /100 WBC
[2019-06-06 12:03] LABS: PLATELET ESTIMATE MARKEDLY INCREASED
[2019-06-06 13:01] LABS: HAPTOGLOBIN 207 mg/dL (30-200)
[2019-06-06] MEDS: HYDROCODONE/ACETAMINOPHEN 5/325MG TABLET PO PRN ×2 (17:08→21:58)
[2019-06-06 19:39] LABS: HEMATOCRIT 26.7 % (36.0-48.0); HEMOGLOBIN 8.5 g/dL (12.0-16.0)
[2019-06-06] MEDS: DIVALPROEX SODIUM 500MG ER TABLET PO SCH (21:57)
[2019-06-07] VITALS (7 sets, daily range): BP systolic 99–145; BP diastolic 61–81
[2019-06-07] MEDS: CEFTRIAXONE 1 G PREMIX 50 ML IV SCH (00:39)
[2019-06-07 06:56] LABS: CHLORIDE 108 mEq/L (98-107)
[2019-06-07 07:09] LABS: HEMATOCRIT. 24.2 % (36.0-48.0); HEMOGLOBIN. 7.8 g/dL (12.0-16.0); MEAN CORPUSCULAR HEMOGLOBIN 25.6 pg (28.0-32.0); MEAN CORPUSCULAR VOLUME 79.3 fL (81.0-99.0); MEAN PLATELET VOLUME 7.4 fl (7.4-10.4); PLATELET 599 x1000/uL (130-400); RED BLOOD CELL COUNT 3.05 mill/uL (4.2-5.4); RED CELL DISTRIBUTION WIDTH 22.6 % (11.6-14.6)
[2019-06-07] MEDS ORDERED: POLYETHYLENE GLYCOL 3350 (17GM) 1 DOSE PACK PO SCH (07:45)
[2019-06-07] MEDS: HYDROCODONE/ACETAMINOPHEN 5/325MG TABLET PO PRN (09:44)
[2019-06-07 10:04] LABS: NUCLEATED RED BLOOD CELLS 2 /100 WBC; PLATELET ESTIMATE INCREASED
[2019-06-07] MEDS: MORPHINE SULFATE 2 MG/ML CPJ (NOT FOR IM USE) IV PRN ×2 (11:36→15:42)
[2019-06-07 16:48] LABS: HEMATOCRIT 24.2 % (36.0-48.0); HEMOGLOBIN 7.8 g/dL (12.0-16.0); MEAN CORPUSCULAR HEMOGLOBIN 25.3 pg (28.0-32.0); MEAN CORPUSCULAR VOLUME 78.7 fL (81.0-99.0); PLATELET 629 x1000/uL (130-400); RED BLOOD CELL COUNT 3.08 mill/uL (4.2-5.4); RED CELL DISTRIBUTION WIDTH 22.7 % (11.6-14.6)
[2019-06-07] MEDS ORDERED: FERR325T6 MT (17:14)
[2019-06-07] MEDS ORDERED: CIPR-264 MT (17:14)
[2019-06-07] MEDS ORDERED: ASCO-339 MT (17:14)
== END 2019-06-07 19:50 | disposition home or self-care (01) | DRG 812 ==
LOC: ER 20:33 → 8WST 23:30 → CANRESERV 06-05 07:16 → ENRESERV 06-05 07:16
PROVIDERS: ADMIT Internal Medicine; ATTEND Internal Medicine
PROC: 30233N1 Transfusion of Nonautologous Red Blood Cells into Peripheral Vein, Percutaneous Approach (ICD-10-PCS; principal; 2019-06-05)
DX: D50.9 Iron deficiency anemia, unspecified (principal); N12 Tubulo-interstitial nephritis, not specified as acute or chronic; E44.1 Mild protein-calorie malnutrition; F20.9 Schizophrenia, unspecified; K80.20 Calculus of gallbladder without cholecystitis without obstruction; R79.89 Other specified abnormal findings of blood chemistry; R80.9 Proteinuria, unspecified; J45.909 Unspecified asthma, uncomplicated; F31.9 Bipolar disorder, unspecified; I10 Essential (primary) hypertension; Z90.49 Acquired absence of other specified parts of digestive tract; Z68.25 Body mass index [BMI] 25.0-25.9, adult
CPT/HCPCS: 36415; 80048; 80076; 80305; 81003; 83010; 83615; 85014; 85018; 85027; 85049; 86850; 86900; 86920; 87077; 87186; 93005; 96374; 96375; 96376; 99285; J0696; J2270; J2405; J7040; P9016

== ENCOUNTER 2019-10-18 21:57 | Emergency (ER) | payer MEDICARE, MEDICAID ==
[~2019-10-18] VITALS: Ht 160 cm; Wt 72.5 kg
[~2019-10-18 21:57] MED LIST changes: +ASCO-339 MT; +CIPR-264 MT; +FERR325T6 MT; -NITR-87 MT
[2019-10-19] MEDS ORDERED: SODIUM CHLORIDE 0.9% 1,000 ML IV ONE (00:24)
[2019-10-19] MEDS ORDERED: ONDANSETRON HCL 4MG/2ML INJ IV STA (00:24)
[2019-10-19] MEDS ORDERED: MORPHINE SULFATE 4 MG/ML CPJ (NOT FOR IM USE) IV STA (00:24)
[2019-10-19] MEDS ORDERED: SODIUM CHLORIDE 0.9% 1000ML BAG (SEPSIS BOLUS) IV ONE (00:30)
[2019-10-19 02:29] LABS: HEMATOCRIT. 22.6 % (36.0-48.0); HEMOGLOBIN. 7.3 g/dL (12.0-16.0); MEAN CORPUSCULAR HEMOGLOBIN 28.9 pg (28.0-32.0); MEAN CORPUSCULAR VOLUME 90.1 fL (81.0-99.0); MEAN PLATELET VOLUME 8.6 fl (7.4-10.4); PLATELET 372 x1000/uL (130-400); RED BLOOD CELL COUNT 2.51 mill/uL (4.2-5.4); RED CELL DISTRIBUTION WIDTH 16.9 % (11.6-14.6)
[2019-10-19 02:35] LABS: CHLORIDE 111 mEq/L (98-107); INR 1.1; PROTHROMBIN TIME 11.5 sec (9.6-11.0)
[2019-10-19] MEDS ORDERED: PIPERACILLIN/TAZ 3.375G PREMIX 50 ML IV ONE (03:45)
[2019-10-19] MEDS ORDERED: VANCOMYCIN 1 G PREMIX 200 ML IV SCH (03:45)
[2019-10-19 04:14] LABS: PLATELET ESTIMATE NORMAL
[2019-10-19] MEDS ORDERED: SKIN ADHESIVE 0.7 GM EA TOP ONE (07:23)
[2019-10-19] MEDS ORDERED: BUPIVACAINE HCL 0.5% (5MG/ML) 50ML ONE (07:24)
[2019-10-19 09:17] LABS: MEAN CORPUSCULAR HEMOGLOBIN 29.7 pg (28.0-32.0); MEAN CORPUSCULAR VOLUME 91.1 fL (81.0-99.0); MEAN PLATELET VOLUME 8.2 fl (7.4-10.4); PLATELET 257 x1000/uL (130-400); RED BLOOD CELL COUNT 2.03 mill/uL (4.2-5.4); RED CELL DISTRIBUTION WIDTH 15.8 % (11.6-14.6)
[2019-10-19 09:37] LABS: HEMATOCRIT. 18.5 % (36.0-48.0)
[2019-10-19 09:53] LABS: PLATELET ESTIMATE NORMAL
[2019-10-19] MEDS ORDERED: SODIUM CHLORIDE 0.9% 1,000 ML IV SCH (11:21)
[2019-10-19] MEDS ORDERED: ONDANSETRON HCL 4MG/2ML INJ IV PRN ×2 (11:30→15:30)
[2019-10-19] MEDS ORDERED: ACETAMINOPHEN 325MG TABLET PO PRN (11:30)
[2019-10-19] MEDS: PANTOPRAZOLE SODIUM 40 MG/VIAL IV SCH ×2 (12:13→17:32)
[2019-10-19 12:15] LABS: MEAN CORPUSCULAR HEMOGLOBIN 30.6 pg (28.0-32.0); MEAN CORPUSCULAR VOLUME 93.2 fL (81.0-99.0); MEAN PLATELET VOLUME 8.2 fl (7.4-10.4); PLATELET 173 x1000/uL (130-400); RED BLOOD CELL COUNT 1.62 mill/uL (4.2-5.4); RED CELL DISTRIBUTION WIDTH 15.7 % (11.6-14.6)
[2019-10-19 12:30] LABS: TOTAL IRON BINDING CAPACITY 153 ug/dL (250-450)
[2019-10-19 12:49] LABS: FOLIC ACID (FOLATE) SERUM 6.7 ng/mL (>5.38)
[2019-10-19 12:56] LABS: HEMOGLOBIN. 4.9 g/dL (12.0-16.0)
[2019-10-19 12:57] LABS: HEMATOCRIT. 15.1 % (36.0-48.0)
[2019-10-19] MEDS ORDERED: NOREPINEPHRINE 4MG/250ML PMX 250 ML IV ONE ×3 (13:00→19:46)
[2019-10-19 13:26] LABS: NUCLEATED RED BLOOD CELLS 1 /100 WBC; PLATELET ESTIMATE NORMAL
[2019-10-19] MEDS ORDERED: LIDOCAINE HCL 1% 20ML VIAL (Pyxis) INJ ONE (14:12)
[2019-10-19] MEDS ORDERED: SODIUM BICARBONATE 4% (2.4MEQ) 5ML VIAL IV ONE (14:12)
[2019-10-19] MEDS ORDERED: PHENYLEPHRINE 40 MG in DEXT 5% WATER 496 ML IV SCH ×4 (15:30)
[2019-10-19] MEDS ORDERED: PIPERACILLIN/TAZ 3.375G PREMIX 50 ML IV NR (16:00)
[2019-10-19 16:53] LABS: HEMATOCRIT 28.2 % (36.0-48.0); HEMOGLOBIN 8.7 g/dL (12.0-16.0)
[2019-10-19 17:00] LABS: INR 1.6; PROTHROMBIN TIME 17.6 sec (9.6-11.0)
[2019-10-19] MEDS ORDERED: DOPAMINE 400MG/250ML PREMIX 250 ML IV ONE ×2 (18:00→18:50)
[2019-10-19] MEDS ORDERED: SUCRALFATE 1 G/10 ML UDC PO SCH (18:00)
[2019-10-19] MEDS ORDERED: EPINEPHRINE 0.1MG/ML (1:10,000) 10ML SYR ONE ×2 (18:38→18:49)
[2019-10-19 18:43] LABS: HEMATOCRIT. 24.9 % (36.0-48.0); HEMOGLOBIN. 7.1 g/dL (12.0-16.0); MEAN CORPUSCULAR HEMOGLOBIN 29.8 pg (28.0-32.0); MEAN PLATELET VOLUME 8.9 fl (7.4-10.4); PLATELET 97 x1000/uL (130-400); RED BLOOD CELL COUNT 2.37 mill/uL (4.2-5.4)
[2019-10-19 19:15] LABS: PLATELET ESTIMATE DECREASED
[2019-10-19] MEDS ORDERED: CALCIUM CHLORIDE 1GM/10ML SYR IV ONE (19:57)
[2019-10-19] MEDS ORDERED: SODIUM BICARBONATE 8.4% 1 MEQ/ML 50ML SYR IV ONE (19:58)
[2019-10-19] MEDS ORDERED: PIPERACILLIN/TAZOBACTAM 3.375 G in DEXTROSE 5% WATER 50 ML IV SCH (21:00)
[2019-10-19 21:13] VITALS: BP 40/13
[2019-10-20] MEDS ORDERED: PIPERACILLIN/TAZ 3.375G PREMIX 50 ML IV ONE (08:00)
== END 2019-10-19 21:40 | disposition expired ==
LOC: ER 21:57 → ENRESERV 10-19 09:42 → CANRESERV 10-19 09:42 → CANBEDREQ 10-19 10:16 → EDBEDREQSVC 10-19 11:39 → ER 10-19 21:40 → ENRESERV 10-19 22:49 → CANRESERV 10-19 22:49 → CANBEDREQ 10-20 01:16
DX: K81.0 Acute cholecystitis (principal); A41.9 Sepsis, unspecified organism; K82.A1 Gangrene of gallbladder in cholecystitis; R65.21 Severe sepsis with septic shock; I46.9 Cardiac arrest, cause unspecified; D62 Acute posthemorrhagic anemia; I10 Essential (primary) hypertension; J45.909 Unspecified asthma, uncomplicated; K92.2 Gastrointestinal hemorrhage, unspecified; Z88.3 Allergy status to other anti-infective agents
CPT/HCPCS: 31500; 71045; 74176; 76705; 76937; 78278; 92950; 93005; 96361; 96365; 96366; 96368; 96375; 96376; 99291; A9560; C1725; C9113; J1265; J2270; J2370; J2405; J2543; J3370; J3490; J7030; J7060; P9016; P9034